=== PATIENT | female | born 1975 | race Caucasian/White ===

== ENCOUNTER 2017-06-19 09:48 | Emergency (ER) | payer OTHER ==
[~2017-06-19] VITALS: Ht 154.9 cm; Wt 71.5 kg
[~2017-06-19 09:48] MED LIST: IBUP200C11
[2017-06-19 09:50] VITALS: Ht 154.9 cm; Wt 71.5 kg
--- NOTE | 2017-06-19 12:09 | RADRPT ---
PROCEDURE: Right knee series. CLINICAL INDICATION: Right knee pain TECHNIQUE: Three views of the right knee are available for review. COMPARISON: None available FINDINGS: There is normal mineralization and alignment of the bones of the right knee. No acute fracture or d islocation is identified. No joint effusion is seen. Overlying soft tissues are unremarkable. IMPRESSION: 1. Unremarkable right knee x-ray series. RPTAT: KK .Ssuhant Cedeño MD, MD Date Time Electronically viewed and signed by .Sushant Cedeño MD, MD on 06/19/2017 12:09 .B/
--- NOTE | 2017-06-19 12:10 | RADRPT ---
PROCEDURE: XR Femur. CLINICAL INDICATION: Left femur pain TECHNIQUE: AP and lateral views of the left femur were obtained. COMPARISON: No prior studies are available for comparison. FINDINGS: There is normal mineralization and alignment. There is no evidence of acute fracture or dislocation. Limited evaluation of the joints of the left femur demonstrates no significant abnormality. The sof t tissues are unremarkable. IMPRESSION: 1. Unremarkable left femur x-ray series. RPTAT: KK .Sushant Cedeño MD, MD Date Time Electronically viewed and signed by .Sushant Cedeño MD, on 06/19/2017 12:09 .B/
[2017-06-19] MEDS ORDERED: IBUP-1542 PO (12:34)
[2017-06-19] MEDS ORDERED: TRAM-40 PO (12:34)
--- NOTE | 2017-06-19 12:39 | ERD ---
ER Documentation Chief Complaint Date/Time DATE: 06/19/17 TIME: 12:36 Chief Complaint LT LEG PAIN X 1 WEEK , WORSE TODAY HPI This 42-year-old female complains of worsening her intermittent pain in her left thigh that she states is been intermittent for last year. She also has right knee pain. She denies any history of trauma, fevers, weakness, bowel or bladder incontinence. She denies any rashes and she feels like the pain is in her bones. ROS All systems reviewed and are negative except as per history of present illness. Medications Home Meds Active Scripts Tramadol Hcl* (Ultram*) 50 Mg Tablet, 50 MG PO Q6H Y for PAIN, #20 TAB Prov:MARC COYLE MD 06/19/17 Ibuprofen* (Ibuprofen*) 600 Mg Tablet, 600 MG PO Q6, #20 TAB Prov:MARC COYLE MD 06/19/17 Reported Medications Ibuprofen* (Advil*) 200 Mg Capsule, QID 12/16/12 [None] No Conflict Check 05/22/12 Allergies Allergies: Coded Allergies: No Known Allergies (Verified Allergy, Unknown, 06/19/17) PMhx/Soc History of Surgery: Yes (CSECTION X 2,HERNIA,BREAST IMPLANTS,TUMMY TUCK) Anesthesia Reaction: No Hx Neurological Disorder: No Hx Respiratory Disorders: No Hx Cardiac Disorders: No Hx Psychiatric Problems: No Hx Miscellaneous Medical Probl: No Hx Alcohol Use: No Hx Substance Use: No Hx Tobacco Use: No Physical Exam Vitals Vital Signs Date Time Temp Pulse Resp B/P Pulse Ox O2 Delivery O2 Flow Rate FiO2 06/19/17 09:50 98.1 61 18 139/85 100 Physical Exam Const: [] Alert, [id number] per Head: Atraumatic Eyes: Normal Conjunctiva ENT: Normal External Ears, Nose and Mouth. Neck: Full range of motion..~ No meningismus. Resp: Clear to auscultation bilaterally Cardio: Regular rate and rhythm, no murmurs Abd: Soft, non tender, non distended. Normal bowel sounds Skin: No petechiae or rashes Back: No midline or flank tenderness Ext: No cyanosis, or edema. Mild tenderness left anterior thigh. No skin changes no palpable masses or deformities. There is some mild tenderness in the right knee joint without effusion, deformities, erythema. There is no calf swelling or Homans sign. Neur: Awake and alert Psych: Normal Mood and Affect Procedures/MDM X-ray left femur 2V Interpreted by me: Bones: [No fracture] Joints: [No dislocation] Foreign body: [None]. Impression have normal left femur x-ray X-ray right knee 3V Interpreted by me: Bones: [No fracture] Joints: [No dislocation] Foreign body: [None]. Impression-normal right knee x-ray Patient presents with pain in her left thigh and right knee intermittently for the last several months. There is no signs or symptoms to suggest osteomyelitis , fracture, dislocation, or logic deficits, cauda equina syndrome, DVT, cellulitis or bacterial infection. She will be treated with ibuprofen and tramadol and observation at home Departure Diagnosis: Primary Impression: Leg pain, left Additional Impression: Knee pain Laterality: right Chronicity: unspecified Qualified Code: M25.561 - Right knee pain, unspecified chronicity Condition: Stable Patient Instructions: Knee Pain, Uncertain Cause, Myalgias Referrals: [facility] () Usted se mg hecho un examen mdico de control que le indica que no est en james condicin que requiera tratamiento urgente en el Departamento de Emergencia. Un estudio ms profundo y el tratamiento de manning condicin pueden esperar sin ningn riesgo hasta que usted sea atendida/o en el consultorio de manning mdico o james cl caty. Es responsabilidad suya arreglar james kg para el seguimiento del carola. MANEJO DE CONDICIONES NO URGENTES EN EL FUTURO 1) Si usted tiene un mdico de atencin primaria: Usted debera llamar a manning mdico de atencin primaria antes de venir al departamento de emergencia. Despus de las horas de consultorio, manning doctor o manning asociado/a est disponible por telfono. El mdico o enfermero de rina en el servicio telefnico puede asesorarle por luis medio para atender el problema, o carola contrario se puede programar james kg. 2) Si usted no tiene un mdico de atencin primaria: Llame al mdico o clnica de referencia que aparece abajo hernán las horas de consultorio para hacer james kg para que le vean. CLINICAS: [facility] [id number] [facility] [id number] [facility] [phone] [facility] [phone] [facility] [address] [place] [phone] [facility]. [phone] [address] Additional Instructions: Examines normal hoy. Cheque otro vez con manning doctor primario en el proximo contreras or regresa para mas o nueva simptomas. MARC COYLE MD Jun 19, 2017 12:38
== END 2017-06-19 13:15 | disposition home or self-care (01) ==
LOC: FTE 09:48
DX: M79.605 Pain in left leg (principal); M25.561 Pain in right knee
CPT/HCPCS: 73550; 73562

== ENCOUNTER 2018-01-05 08:43 | Emergency (ER) | END 2018-01-05 10:28 | disposition home or self-care (01) ==